=== PATIENT | female | born 1995 | race Caucasian/White ===

== ENCOUNTER → 2019-08-31 10:25 | Outpatient (CLI) | payer BC, SELFPAY ==
--- NOTE | ~2019-08-31 | CT_ITS ---
EXAMINATION: CT soft tissue neck wo con DATE: 08/31/2019 10:47 INDICATION: Unspecified cyst of jaw. TECHNIQUE: Computed tomography (CT) of the neck was performed without intravenous contrast. Automated exposure control and iterative reconstruction technique were employed. The dose-length product was 3 83.46 mGy-cm. COMPARISON: None FINDINGS: There are no pathologically enlarged lymph nodes. The paranasal sinuses are clear. The mast oid air cells are normal. The mandible and maxilla are normal. IMPRESSION: 1. No cyst identified. Reviewed, dictated and finalized at location A. IMPRESSION: 1. No cyst identified.
== END ==
PROVIDERS: PCP Family Medicine
DX: M27.40 Unspecified cyst of jaw (principal)
CPT/HCPCS: 70490